=== PATIENT | female | born 1955 | race Caucasian/White ===

== ENCOUNTER 2018-09-20 11:37 | Outpatient (REF) | payer BC, SELFPAY ==
[2018-09-20 20:10] LABS: Anion Gap 5.3 mmol/L (3-11); BUN 17 mg/dL (7-18); CO2 32.7 mmol/L (21.0-32.0); CREATININE 0.96 mg/dL (0.55-1.02); Calcium 9.4 mg/dL (8.5-10.1); Chloride 105 mmol/L (98-107); Cholesterol 202 mg/dL (50-200); Glucose 94 mg/dL (70-100); HDL Cholesterol 65 mg/dL (40-60); LDL CHOLESTEROL 125 mg/dL (<100); Potassium 5.1 mmol/L (3.5-5.1); Sodium 143 mmol/L (136-145); Triglyceride 61 mg/dL (30-150)
[2018-09-20 20:14] LABS: Hemoglobin A1C 5.5 % (4.5-6.2)
== END 2018-09-20 11:57 ==
LOC: NCHCN 11:37
PROVIDERS: PCP Physician Assistant Medical; Visit Provider Physician Assistant Medical
DX: Z00.00 Encounter for general adult medical examination without abnormal findings (principal); R73.01 Impaired fasting glucose
CPT/HCPCS: 80048; 80061; 83721; 83036

== ENCOUNTER 2019-06-20 14:19 | Outpatient (CLI) | payer BC, SELFPAY | END 2019-06-20 14:39 | PROVIDERS: PCP Physician Assistant Medical; Visit Provider Physician Assistant Medical | DX: R69 Illness, unspecified (principal) ==

== ENCOUNTER 2019-06-20 16:09 | Outpatient (CLI) | payer BC, SELFPAY ==
[2019-06-20 16:50] LABS: Absolute Basophil Count 0.03 k/cumm (0.0-0.2); Absolute Eosinophil Count 0.17 k/cumm (0.0-0.7); Absolute Lymphocyte Count 1.31 k/cumm (1.2-3.4); Absolute Monocyte Count 0.56 k/cumm (0.11-0.7); Absolute Neutrophil Count 3.25 k/cumm (1.2-6.7); Basophils % 0.6; Eosinophils % 3.2; HCT 39.8 % (36.0-46.0); HGB 13.1 g/dL (12.0-15.5); Lymphocytes % 24.6; Mean Corp. HGB Concentration 32.9 g/dL (32.0-36.0); Mean Corpuscular Hemoglobin 32.3 pg (27.0-33.0); Mean Corpuscular Volume 98.3 fL (80-95); Mean Platelet Volume 8.5 fL (8.0-11.0); Monocytes % 10.5; Neutrophils % 61.1; Platelet Count 289 x1000/uL (130-400); RBC 4.05 m/cumm (4.00-5.20); RBC Distribution Width 12.6 % (11.7-14.6); White Blood Cell Count 5.32 k/cumm (4.4-10.8)
[2019-06-20 17:32] LABS: Iron 108 ug/dL (50-175); Total Iron Binding Capacity 193 ug/dL (250-450); Transferrin Sat 56 % (15-50)
[2019-06-20 17:58] LABS: ALT 29 U/L (14-59); AST 17 U/L (15-37); Albumin 3.9 g/dL (3.4-5.0); Alkaline Phosphatase 89 U/L (46-116); Anion Gap 8.5 mmol/L (3-11); BUN 19 mg/dL (7-18); Bilirubin, Total 0.3 mg/dL (0.2-1.0); CO2 30.5 mmol/L (21.0-32.0); CREATININE 0.94 mg/dL (0.55-1.02); Calcium 8.7 mg/dL (8.5-10.1); Chloride 103 mmol/L (98-107); Estimated GFR 59.95 (mL/min/1.73m2); Ferritin 275 ng/mL (8-388); Glucose 84 mg/dL (70-100); Potassium 4.4 mmol/L (3.5-5.1); Sodium 142 mmol/L (136-145); TSH (W/Ref FT4) 2.26 uIU/mL (0.36-3.74); Total Protein 6.4 g/dL (6.4-8.2); Vitamin B12 409 pg/mL (193-986)
[2019-06-21 05:20] LABS: Vitamin D 25 Total 39.2 ng/ml (30-100)
[2019-06-23 00:11] LABS: Anaplasma phagocytophilum Negative (Negative); B. miyamotoi PCR Negative (Negative); Babesia divergens/MO-1 Negative (Negative); Babesia duncani Negative (Negative); Babesia microti Negative (Negative); Ehrlichia chaffeensis Negative (Negative); Ehrlichia ewingii/canis Negative (Negative); Ehrlichia muris eauclairensis Negative (Negative)
== END 2019-06-20 16:29 ==
PROVIDERS: PCP Physician Assistant Medical; Visit Provider Physician Assistant Medical
DX: R53.83 Other fatigue (principal); Z86.2 Personal history of diseases of the blood and blood-forming organs and certain disorders involving the immune mechanism
CPT/HCPCS: 36415; 80053; 82306; 87798; 82607; 82728; 83540; 83550; 84443; 85025

== ENCOUNTER 2021-03-02 13:19 | Outpatient (REF) | payer MEDICARE, BC, SELFPAY ==
[2021-03-02 13:34] LABS: Abs Immature Grans 0.02 10^3/uL (0.0-0.06); Absolute Basophil Count 0.04 10^3/uL (0.0-0.2); Absolute Eosinophil Count 0.09 10^3/uL (0.0-0.7); Absolute Lymphocyte Count 0.91 10^3/uL (1.2-3.4); Absolute Monocyte Count 0.44 10^3/uL (0.1-0.8); Absolute Neutrophil Count 2.48 10^3/uL (1.2-6.7); Eosinophils % 2.3; HCT 40.7 % (36.0-46.0); Immature Grans % 0.5; Lymphocytes % 22.9; MCH 32.1 pg (27.0-33.0); MCHC 31.9 % (32.0-36.0); MCV 100.5 fL (80-95); MPV 9.2 fL (8.0-11.0); Monocytes % 11.1; Neutrophils % 62.2; Nucleated RBC 0 %; Platelet Count 245 10^3/uL (130-400); RBC 4.05 10^6/uL (3.93-5.22); RDW 12.3 % (11.7-14.6); RDW-SD 46.3 fL; WBC 3.98 10^3/uL (4.4-10.8)
[2021-03-02 13:51] LABS: ALT 28 U/L (14-59); AST 20 U/L (15-37); Albumin 3.9 g/dL (3.4-5.0); Alkaline Phosphatase 85 U/L (46-116); Anion Gap 8.8 mmol/L (3-11); BUN 18 mg/dL (7-18); Bilirubin, Total 0.3 mg/dL (0.2-1.0); CO2 29.2 mmol/L (21.0-32.0); CREATININE 0.9 mg/dL (0.55-1.02); Calcium 8.9 mg/dL (8.5-10.1); Chloride 108 mmol/L (98-107); Glucose 83 mg/dL (74-106); Potassium 4.6 mmol/L (3.5-5.1); Sodium 146 mmol/L (136-145); Total Protein 6.3 g/dL (6.4-8.2)
== END 2021-03-02 13:20 | disposition home or self-care (01) ==
LOC: NCHCN 13:19
PROVIDERS: PCP Physician Assistant Medical; Visit Provider Physician Assistant Medical
DX: R05 Cough (principal); K21.9 Gastro-esophageal reflux disease without esophagitis
CPT/HCPCS: 80053; 85025

== ENCOUNTER 2021-04-10 16:28 | Outpatient (REF) | payer MEDICARE, BC, SELFPAY ==
[2021-04-13 14:45] LABS: COVID-19 RT-PCR UVMMC Result Negative (Negative)
== END 2021-04-10 16:29 | disposition home or self-care (01) ==
LOC: NCHCN 16:28
PROVIDERS: PCP Physician Assistant Medical; Visit Provider Physician Assistant Medical
DX: Z20.822 Contact with and (suspected) exposure to COVID-19 (principal); J34.89 Other specified disorders of nose and nasal sinuses
CPT/HCPCS: U0003

== ENCOUNTER 2022-07-12 21:57 | Outpatient (REF) | payer MEDICARE, BC, SELFPAY ==
[2022-07-12 20:52] LABS: HCT 42.2 % (36.0-46.0); HGB 13.5 g/dL (11.2-15.7); MCH 31.6 pg (27.0-33.0); MCV 99 fL (80-95); MPV 9.3 fL (8.0-11.0); Platelet Count 271 10^3/uL (130-400); RBC 4.27 10^6/uL (3.93-5.22); RDW 12.3 % (11.7-14.6); RDW-SD 44.8 fL; WBC 5.77 10^3/uL (4.4-10.8)
[2022-07-12 21:03] LABS: ALT 27 U/L (14-59); AST 23 U/L (15-37); Albumin 4.2 g/dL (3.4-5.0); Alkaline Phosphatase 88 U/L (46-116); Anion Gap 5.5 mmol/L (3-11); BUN 19 mg/dL (7-18); Bilirubin, Total 0.5 mg/dL (0.2-1.0); CO2 30.5 mmol/L (21.0-32.0); Calcium 9.5 mg/dL (8.5-10.1); Calculated LDL 111 mg/dL (<100); Chloride 104 mmol/L (98-107); Cholesterol 193 mg/dL (<200); Estimated GFR 61.75 (mL/min/1.73m2); Glucose 92 mg/dL (74-106); HDL Cholesterol 64 mg/dL (40-60); Potassium 4.4 mmol/L (3.5-5.1); Sodium 140 mmol/L (136-145); Total Protein 7.6 g/dL (6.4-8.2); Triglyceride 94 mg/dL (<150)
== END 2022-07-12 21:58 | disposition home or self-care (01) ==
LOC: NCHCN 21:57
PROVIDERS: PCP Physician Assistant Medical; Visit Provider Physician Assistant Medical
DX: Z00.00 Encounter for general adult medical examination without abnormal findings (principal)
CPT/HCPCS: 80053; 80061; 85027

== ENCOUNTER 2023-07-11 09:46 | Outpatient (REF) | payer MEDICARE, BC, SELFPAY ==
[2023-07-11 15:10] LABS: Abs Immature Grans 0.01 10^3/uL (0.0-0.06); Absolute Basophil Count 0.03 10^3/uL (0.0-0.2); Absolute Eosinophil Count 0.02 10^3/uL (0.0-0.7); Absolute Lymphocyte Count 1.09 10^3/uL (1.2-3.4); Absolute Monocyte Count 0.37 10^3/uL (0.1-0.8); Absolute Neutrophil Count 3.49 10^3/uL (1.2-6.7); Basophils % 0.6; Eosinophils % 0.4; HCT 39.8 % (36.0-46.0); Immature Grans % 0.2; Lymphocytes % 21.8; MCH 32.2 pg (27.0-33.0); MCHC 32.7 % (32.0-36.0); MCV 99 fL (80-95); MPV 9.2 fL (8.0-11.0); Monocytes % 7.4; Neutrophils % 69.6; Platelet Count 276 10^3/uL (130-400); RBC 4.04 10^6/uL (3.93-5.22); RDW 12.3 % (11.7-14.6); RDW-SD 44.8 fL; WBC 5.01 10^3/uL (4.4-10.8)
[2023-07-11 15:34] LABS: ALT 23 U/L (14-59); AST 19 U/L (15-37); Albumin 3.8 g/dL (3.4-5.0); Alkaline Phosphatase 88 U/L (46-116); Anion Gap 5.5 mmol/L (3-11); BUN 16 mg/dL (7-18); Bilirubin, Total 0.5 mg/dL (0.2-1.0); CO2 31.5 mmol/L (21.0-32.0); Calcium 9.3 mg/dL (8.5-10.1); Calculated LDL 126 mg/dL (<100); Chloride 104 mmol/L (98-107); Cholesterol 200 mg/dL (<200); Estimated GFR 61.36 (mL/min/1.73m2); Glucose 103 mg/dL (74-106); HDL Cholesterol 60 mg/dL (40-60); Potassium 4.7 mmol/L (3.5-5.1); Sodium 141 mmol/L (136-145); Total Protein 7.3 g/dL (6.4-8.2); Triglyceride 70 mg/dL (<150)
[2023-07-11 16:07] LABS: Vitamin D 25 Total 27.1 ng/mL (30-100)
== END 2023-07-11 09:47 | disposition home or self-care (01) ==
LOC: NCHCN 09:46
PROVIDERS: PCP Physician Assistant Medical; Visit Provider Physician Assistant Medical
DX: R73.03 Prediabetes (principal); E78.89 Other lipoprotein metabolism disorders; M85.88 Other specified disorders of bone density and structure, other site
CPT/HCPCS: 80053; 80061; 82306; 85025

== ENCOUNTER 2024-07-13 09:07 | Outpatient (REF) | payer MEDICARE, BC, SELFPAY ==
[2024-07-13 15:58] LABS: Hemoglobin A1C 5.5 % (<5.7)
[2024-07-13 16:12] LABS: ALT 16 U/L (14-59); AST 24 U/L (15-37); Albumin 3.9 g/dL (3.4-5.0); Alkaline Phosphatase 95 U/L (46-116); Anion Gap 6.8 mmol/L (3-11); BUN 19 mg/dL (7-18); Bilirubin, Total 0.39 mg/dL (0.2-1.0); CO2 29.2 mmol/L (21.0-32.0); Calculated LDL 107 mg/dL (<100); Chloride 106 mmol/L (98-107); Cholesterol 187 mg/dL (<200); Estimated GFR 60.98 (mL/min/1.73m2); Glucose 99 mg/dL (74-106); HDL Cholesterol 70 mg/dL (40-60); Potassium 4.8 mmol/L (3.5-5.1); Sodium 142 mmol/L (136-145); Total Protein 7.1 g/dL (6.4-8.2); Triglyceride 53 mg/dL (<150); Vitamin D 25 Total 34.2 ng/mL (30-100)
[2024-07-16 22:45] LABS: Vitamin B12 419 pg/mL (211-911)
== END 2024-07-13 09:08 | disposition home or self-care (01) ==
LOC: NCHCN 09:07
PROVIDERS: PCP Physician Assistant Medical; Visit Provider Physician Assistant Medical
DX: R73.03 Prediabetes (principal); M85.80 Other specified disorders of bone density and structure, unspecified site
CPT/HCPCS: 80053; 80061; 82306; 82607; 83036

== ENCOUNTER 2025-07-30 09:29 | Outpatient (REF) | payer MEDICARE, BC, SELFPAY ==
[2025-07-30 15:45] LABS: Hemoglobin A1C 5.4 % (<5.7)
[2025-07-30 16:03] LABS: ALT 23 U/L (10-49); AST 24 U/L (<34); Albumin 4.2 g/dL (3.2-5.0); Alkaline Phosphatase 85 U/L (46-116); Anion Gap 7 mmol/L (3-11); BUN 16 mg/dL (9-23); Bilirubin, Total 0.6 mg/dL (0.2-1.2); CO2 32.0 mmol/L (20.0-31.0); Calcium 9.6 mg/dL (8.3-10.6); Chloride 107 mmol/L (98-107); Cholesterol 181 mg/dL (<200); Glucose 93 mg/dL (74-106); HDL Cholesterol 61 mg/dL (>or=50); Potassium 4.6 mmol/L (3.5-5.1); Sodium 146 mmol/L (136-145); Total Protein 6.6 g/dL (5.7-8.2); Vitamin B12 651 pg/mL (211-911)
== END 2025-07-30 09:30 | disposition home or self-care (01) ==
LOC: NCHCN 09:29
PROVIDERS: PCP Physician Assistant Medical; Visit Provider Physician Assistant Medical
DX: E78.00 Pure hypercholesterolemia, unspecified (principal); E53.8 Deficiency of other specified B group vitamins; R73.03 Prediabetes
CPT/HCPCS: 80053; 80061; 82607; 83036